=== PATIENT | female | born 1980 | race Caucasian/White ===

== ENCOUNTER 2017-04-07 09:10 | Emergency (ER) | payer OTHER ==
[~2017-04-07] VITALS: Ht 152.4 cm; Wt 92.7 kg
[2017-04-07] MEDS ORDERED: CLONIDINE HCL0.2 MG PO (10:58)
[2017-04-07] MEDS ORDERED: LAMICTAL200 MG PO (10:59)
[2017-04-07] MEDS ORDERED: GEODON60 MG PO (10:59)
[2017-04-07] MEDS ORDERED: RANITIDINE HCL150 MG PO (11:00)
[2017-04-07] MEDS ORDERED: PREDNISONE20 MG PO (11:15)
[2017-04-07] MEDS ORDERED: VENTOLIN HFA18 GM IH (11:15)
[2017-04-07 11:33] VITALS: BP 118/73
== END 2017-04-07 11:36 | disposition home or self-care (01) ==
LOC: EME 09:10
DX: J40 Bronchitis, not specified as acute or chronic (principal); B34.9 Viral infection, unspecified; M54.9 Dorsalgia, unspecified; R51 Headache; F17.200 Nicotine dependence, unspecified, uncomplicated
CPT/HCPCS: 71020; 94640; 99281; 99284

== ENCOUNTER 2017-06-09 07:08 | Emergency (ER) | payer OTHER ==
[~2017-06-09] VITALS: Ht 152.4 cm; Wt 94.8 kg
[~2017-06-09 07:08] MED LIST: CLONIDINE HCL0.2 MG PO; GEODON60 MG PO; LAMICTAL200 MG PO; PREDNISONE20 MG PO; RANITIDINE HCL150 MG PO; VENTOLIN HFA18 GM IH
[2017-06-09] MEDS ORDERED: LAMICTAL100 MG PO (09:16)
[2017-06-09] MEDS ORDERED: CLINDAMYCIN PHO60 M1 TP (09:16)
[2017-06-09] MEDS ORDERED: GEODON80 MG PO (09:16)
[2017-06-09] MEDS ORDERED: PATANOL OP100 DROP/5 RIGHT EYE (09:16)
[2017-06-09 09:30] VITALS: BP 134/56
== END 2017-06-09 09:30 | disposition home or self-care (01) ==
LOC: EME 07:08
DX: L70.0 Acne vulgaris (principal); H10.11 Acute atopic conjunctivitis, right eye; F31.9 Bipolar disorder, unspecified; Z76.0 Encounter for issue of repeat prescription; B19.20 Unspecified viral hepatitis C without hepatic coma; F17.200 Nicotine dependence, unspecified, uncomplicated; Z71.6 Tobacco abuse counseling
CPT/HCPCS: 99281; 99283